=== PATIENT | female | born 1965 ===

== ENCOUNTER 2020-12-25 06:25 | Day surgery (SDC) | payer OTHER ==
[~2020-12-25 06:25] MED LIST: ATORVASTATIN CA20 MG PO; DEXILANT60 MG PO; MELATONIN10 MG PO; PEPCID PO; TOPROL XL25 M1 PO; [UNRECOGNIZED DRUG - OTHER]
== END 2020-12-25 14:10 | disposition home or self-care (01) ==
LOC: CIR.AMB 06:25
PROVIDERS: ATTEND Orthopaedic Surgery Hand Surgery
DX: G56.02 Carpal tunnel syndrome, left upper limb (principal); G56.22 Lesion of ulnar nerve, left upper limb